=== PATIENT | female | born 1985 | race Two or more races ===

== ENCOUNTER 2018-11-23 13:29 | Outpatient (CLI) | payer OTHER | END 2018-11-23 14:45 | disposition home or self-care (01) | LOC: PRENATAL 13:29 | DX: O26.891 Other specified pregnancy related conditions, first trimester (principal); O09.511 Supervision of elderly primigravida, first trimester; Z36.89 Encounter for other specified antenatal screening ==

== ENCOUNTER 2018-11-23 15:48 | Outpatient (CLI) | payer OTHER | END 2018-11-23 17:05 | disposition home or self-care (01) | LOC: LAB 15:48 | DX: Z34.00 Encounter for supervision of normal first pregnancy, unspecified trimester (principal) ==

== ENCOUNTER 2019-01-13 14:39 | Outpatient (CLI) | payer OTHER | END 2019-01-13 16:00 | disposition home or self-care (01) | LOC: PRENATAL 14:39 | DX: O10.012 Pre-existing essential hypertension complicating pregnancy, second trimester (principal); O09.512 Supervision of elderly primigravida, second trimester; O34.10 Maternal care for benign tumor of corpus uteri, unspecified trimester ==

== ENCOUNTER → 2019-02-09 | Outpatient (CLI) | payer OTHER | END | disposition home or self-care (01) | LOC: PRENATAL 13:00 | DX: O10.012 Pre-existing essential hypertension complicating pregnancy, second trimester (principal); O09.512 Supervision of elderly primigravida, second trimester ==

== ENCOUNTER 2019-03-24 15:20 | Outpatient (CLI) | payer OTHER | END 2019-03-25 17:52 | disposition home or self-care (01) | LOC: OBS/DEL 15:20 | DX: O14.03 Mild to moderate pre-eclampsia, third trimester (principal); O24.410 Gestational diabetes mellitus in pregnancy, diet controlled; O26.613 Liver and biliary tract disorders in pregnancy, third trimester; K76.0 Fatty (change of) liver, not elsewhere classified ==

== ENCOUNTER → 2019-04-02 | Outpatient (CLI) | payer OTHER | END | disposition home or self-care (01) | LOC: PRENATAL 15:13 | DX: O99.89 Other specified diseases and conditions complicating pregnancy, childbirth and the puerperium (principal); O26.843 Uterine size-date discrepancy, third trimester; O09.513 Supervision of elderly primigravida, third trimester; O24.410 Gestational diabetes mellitus in pregnancy, diet controlled; O10.013 Pre-existing essential hypertension complicating pregnancy, third trimester ==

== ENCOUNTER → 2019-04-19 07:30 | Outpatient (CLI) | payer OTHER | END | disposition home or self-care (01) | LOC: LAB 07:30 | DX: O14.03 Mild to moderate pre-eclampsia, third trimester (principal) ==

== ENCOUNTER → 2019-04-29 | Outpatient (CLI) | payer OTHER | END | disposition home or self-care (01) | LOC: PRENATAL 13:30 | DX: O26.843 Uterine size-date discrepancy, third trimester (principal); O99.513 Diseases of the respiratory system complicating pregnancy, third trimester; O24.410 Gestational diabetes mellitus in pregnancy, diet controlled; O10.013 Pre-existing essential hypertension complicating pregnancy, third trimester; O99.89 Other specified diseases and conditions complicating pregnancy, childbirth and the puerperium; O99.213 Obesity complicating pregnancy, third trimester; O36.8191 Decreased fetal movements, unspecified trimester, fetus 1 ==

== ENCOUNTER 2019-05-18 07:58 | Inpatient (IN) | payer OTHER ==
[~2019-05-18] VITALS: Ht 160 cm; Wt 3.6 kg
[2019-05-18] MEDS ORDERED: LABETALOL HCL200 MG PO (08:22)
[2019-05-18] MEDS ORDERED: OBSTETRIX DHA1 EACH PO (08:23)
[2019-05-18] MEDS ORDERED: ASA81 MG PO (08:23)
== END 2019-05-22 12:15 | disposition home or self-care (01) | DRG 788 ==
LOC: SURG-SUITE 07:58 → LDR 07:58 → OB/GYN 18:27 → SURG-SUITE 05-19 01:18
PROVIDERS: ADMIT Obstetrics & Gynecology
PROC: 3E033VJ Introduction of Other Hormone into Peripheral Vein, Percutaneous Approach (ICD-10-PCS; 2019-05-18)
PROC: 4A1HXCZ Monitoring of Products of Conception, Cardiac Rate, External Approach (ICD-10-PCS; 2019-05-18)
PROC: 10D00Z1 Extraction of Products of Conception, Low, Open Approach (ICD-10-PCS; principal; 2019-05-19)
DX: O82 Encounter for cesarean delivery without indication (principal); O61.0 Failed medical induction of labor; O32.8XX0 Maternal care for other malpresentation of fetus, not applicable or unspecified; Z3A.37 37 weeks gestation of pregnancy; Z37.0 Single live birth